=== PATIENT | male | born 1975 ===

== ENCOUNTER 2020-08-12 12:44 | Outpatient (CLI) | payer OTHER, SELFPAY ==
[2020-08-12 12:55] VITALS: BMI 32.3
--- NOTE | 2020-08-12 12:55 | ECG_ITS ---
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 Interpretive Statements NAME OF STUDY: TREADMILL STRESS TEST INDICATION: [at risk for qt syndrome, ] EXERCISE DATA: The patient was exercised by Edil protocol. Baseline heart rate was 74 beats per minute. Baseline blood pressure was 136/93 millimeters of mercury. Target heart rate was 148 beats per minute. Maximum heart rate achieved was 149 bpm which was 100% of the target heart rate. Maximum blood pressure was 192/95 millimeters of mercury. Total exercise time was 10 minutes 36 seconds. Maximum METs achieved was 13.5, maximum VO2 was 47.3. The reason for ending the test was completion of the protocol. The patient complained of shortness of breath during the stress test, which then resolved at the end of the test. ELECTROCARDIOGRAM: BASELINE: Showed sinus rhythm, normal axis, no significant ST-T changes at the baseline noted. [] EXERCISE: At the peak exercise level, [] No significant ST-T changes suggestive of ischemia noted. [] RECOVERY: During the recovery period, heart rate dropped appropriately. No significant ST-T changes in the recovery suggestive of ischemia noted. [] CONCLUSION: 1. Exercise capacity excellent. 2. Heart rate response was appropriate. 3. Blood pressure response was appropriate. 4. Symptoms not suggestive of ischemia. 5. Exercise stress test was not suggestive of ischemia. Electronically Signed On 09-29-2020 17:54:48 CDT by Kimo Kent M.D. [id number]
[2020-08-12 13:31] VITALS: BP 143/87; PULSE 86
== END 2020-08-12 12:45 | disposition home or self-care (01) ==
LOC: CDL 12:48
PROVIDERS: Visit Provider Nurse Practitioner Family
DX: Z91.89 Other specified personal risk factors, not elsewhere classified (principal)
CPT/HCPCS: 93017